=== PATIENT | female | born 1950 | race Caucasian/White ===

== ENCOUNTER 2017-02-14 09:53 | Emergency (ER) | payer MEDICARE, OTHER ==
[~2017-02-14] VITALS: Ht 157.5 cm; Wt 66.5 kg
[2017-02-14 09:59] VITALS: Ht 157.5 cm; Wt 66.5 kg
[2017-02-14] MEDS ORDERED: MECL12.574 PO (10:41)
[2017-02-14] MEDS ORDERED: AZIT250T94 PO (10:41)
--- NOTE | 2017-02-14 15:09 | ERD ---
ER Documentation Chief Complaint Date/Time DATE: 02/14/17 TIME: 15:07 Chief Complaint LEFT EAR PAIN SINCE LAST NIGHT HPI This patient is a 67-year-old female presenting to the emergency department with complaints of left ear pain associated with vertigo which began approximately 14 hours ago. Symptoms are constant. Symptoms are mild in severity. Symptoms are nonradiating. She denies fevers, chills, sore throat, cough, urinary symptoms, nausea, vomiting, diarrhea, or other symptoms. ROS All systems reviewed and are negative except as per history of present illness. Medications Home Meds Active Scripts Meclizine Hcl* (Antivert*) 12.5 Mg Tab, 12.5 MG PO Q6H Y for DIZZINESS, #20 TAB Prov:MICHELLE KENNEDY PA-C 02/14/17 Azithromycin* (Zithromax*) 250 Mg Tablet, 250 MG PO .ZPACK DIRECTED, #6 TAB TAKE 500 MG (2 TABS) THE FIRST DAY THEN 250 MG (1 TAB) DAYS 2-5 Prov:MICHELLE KENNEDY PA-C 02/14/17 Allergies Allergies: Coded Allergies: No Known Allergy (Unverified , 02/14/17) PMhx/Soc Medical and Surgical Hx: pt denies Surgical Hx Hx Cardiac Disorders: Yes (HYPERTENSION) Hx Alcohol Use: No Hx Substance Use: No Hx Tobacco Use: No Smoking Status: Never smoker Physical Exam Vitals Vital Signs Date Time Temp Pulse Resp B/P Pulse Ox O2 Delivery O2 Flow Rate FiO2 02/14/17 09:59 98.0 82 18 148/65 97 Physical Exam Const: Nontoxic, well-appearing female in no acute distress. Head: Atraumatic Eyes: Normal Conjunctiva ENT: Normal External Ears, Nose and Mouth. There is bilateral erythema to tympanic membranes with no significant bulging or signs of involvement of the external auditory canal. Neck: Full range of motion..~ No meningismus. Resp: Clear to auscultation bilaterally Cardio: Regular rate and rhythm, no murmurs Skin: No petechiae or rashes Back: No midline or flank tenderness Ext: No cyanosis, or edema Neur: Awake and alert Psych: Normal Mood and Affect Procedures/MDM 67-year-old female presenting to the emergency department with complaints of left ear pain. Examination is concerning for bilateral otitis media. The patient also complains of some vertigo but she is neurologically intact. The patient stable for outpatient management with a prescription for azithromycin and meclizine. The patient agreed with the discharge plan and diagnosis. I have low suspicion for any life-threatening conditions. Strict ER return precautions were discussed. Close follow-up with a primary care physician was advised. Departure Diagnosis: Primary Impression: Otitis media Otitis media type: unspecified Laterality: bilateral Chronicity: unspecified Qualified Code: H66.93 - Bilateral otitis media, unspecified chronicity, unspecified otitis media type Additional Impression: Dizziness Condition: Fair Patient Instructions: Inner Ear Problems: Causes of Dizziness (Vertigo), Otitis Media, Abx Tx (Adult) [facility] Usted se durham hecho un examen mdico de control que le indica que no est en rambo condicin que requiera tratamiento urgente en el Departamento de Emergencia. Un estudio ms profundo y el tratamiento de ball condicin pueden esperar sin ningn riesgo hasta que usted sea atendida/o en el consultorio de ball mdico o rambo cl vera. Es responsabilidad suya arreglar rambo imelda para el seguimiento del linsey. MANEJO DE CONDICIONES NO URGENTES EN EL FUTURO 1) Si usted tiene un mdico de atencin primaria: Usted debera llamar a ball mdico de atencin primaria antes de venir al departamento de emergencia. Despus de las horas de consultorio, ball doctor o ball asociado/a est disponible por telfono. El mdico o enfermero de ольга en el servicio telefnico puede asesorarle por desirae medio para atender el problema, o linsey contrario se puede programar rambo imelda. 2) Si usted no tiene un mdico de atencin primaria: Llame al mdico o clnica de referencia que aparece abajo tammi las horas de consultorio para hacer rambo imelda para que le vean. CLINICAS: [facility] [phone] [facility] [phone] [facility] [phone] [facility] [phone] [facility] [phone] [address] [facility]. [phone] [address] Additional Instructions: No mas mejor en 2-3 lozano, regresar. Mas peor en 24 horas, regresear rapidamente. Ir a doctor primario in 5-7 lozano. Usar instrucciones cuando albert medicamento. MICHELLE KENNEDY PA-C Feb 14, 2017 15:09
== END 2017-02-14 10:42 | disposition home or self-care (01) ==
LOC: FTE 09:53
DX: H66.93 Otitis media, unspecified, bilateral (principal); R42 Dizziness and giddiness; I10 Essential (primary) hypertension
CPT/HCPCS: 99283